=== PATIENT | female | born 1985 | race Caucasian/White ===

== ENCOUNTER 2023-07-12 16:20 | Inpatient (IN) ==
[2023-07-12] MEDS ORDERED: Nalbuphine 10 MG/ML 1 ML VIAL IV PRN (17:17)
[2023-07-12] MEDS ORDERED: Buffered Lidocaine 1% SYRIN 1 ml INTRADERM ONE (17:17)
[2023-07-12] MEDS ORDERED: Lactated Ringers 1000 ml BAG 1,000 ML IV ONE (17:17)
[2023-07-12] MEDS ORDERED: Promethazine INJ(RESTRICTED) 25 MG/ML 1 ml VIAL IV PRN (17:17)
[2023-07-12] MEDS ORDERED: Lidocaine 1% VIAL 10 MG/ML 30 ML VIAL INJ PRN (17:17)
[2023-07-12] MEDS ORDERED: Lactated Ringers 1000 ml BAG 1,000 ML IV SCH (18:00)
[2023-07-12 18:09] LABS: ABS Eosinophils 0.1 10^3/uL (0.0-0.5); ABS Lymphocytes 1.9 10^3/uL (1.0-4.8); ABS Monocytes 0.6 10^3/uL (0.0-0.9); ABS Neutrophils 5.7 10^3/uL (1.5-7.6); Eosinophil % 1.1 %; Hematocrit 35.9 % (35-45); Hemoglobin 12.5 g/dL (11.5-14.3); Lymphocyte % 23.1 %; Mean Corpuscular Hemoglobin 32.5 pg (27-33); Mean Corpuscular Hgb Conc 34.8 g/dL (31-36); Mean Corpuscular Volume 93.5 fL (80-97); Mean Platelet Volume 9.8 fL (7.5-11.2); Platelet Count 246 10^3/uL (150-450); Red Blood Count 3.84 10^6/uL (3.63-4.92); Red Cell Distribution Width 13.6 % (12-17); White Blood Count 8.2 10^3/uL (3.8-11.8)
[2023-07-12 18:25] LABS: Urine Appearance Cloudy; Urine Bilirubin Negative (Negative); Urine Blood Negative (Negative); Urine Color Yellow; Urine Glucose 1+(50 mg/dL) (Negative); Urine Ketones Negative (Negative); Urine Nitrite Negative (Negative); Urine Protein Negative (Negative); Urine Specific Gravity 1.009 (1.002-1.030); Urine Urobilinogen Negative (Negative)
[2023-07-12] MEDS: Ampicillin ADVAN 2 GM in NS 0.9% 100 ml BAG 100 ML IVPB SCH (18:40)
[2023-07-12 18:47] LABS: Urine Benzodiazepine Screen None Detected (None Detect); Urine Cannabinoids Screen None Detected (None Detect); Urine Opiates Screen None Detected (None Detect)
[2023-07-13] MEDS: Ampicillin ADVAN 2 GM in NS 0.9% 100 ml BAG 100 ML IVPB SCH ×4 (01:00→17:24)
[2023-07-13] MEDS ORDERED: Oxytocin in LR 20,000 MILLI.UNIT/1,000 ML BAG IV SCH ×2 (05:50→13:20)
[2023-07-13] MEDS ORDERED: OBEPIDURAL (200 ML) 200 ML EPIDURAL ONE (09:39)
[2023-07-13] MEDS ORDERED: Lidocaine 1.5% EPI 1:200,000 30 ML SDV ONE (09:39)
[2023-07-13] MEDS ORDERED: Lactated Ringers 1000 ml BAG 1,000 ML IV ONE (10:18)
[2023-07-13] MEDS ORDERED: Lactated Ringers 1000 ml BAG 500 ML IV PRN ×2 (10:18)
[2023-07-13] MEDS ORDERED: Sodium Citrate/Citric Acid LIQ 15 ML UDC PO PRN (10:18)
[2023-07-13] MEDS ORDERED: Phenylephrine 40 mcg/mL 10mL (400mcg) SYRINGE IV PUSH PRN ×2 (10:18)
[2023-07-13] MEDS ORDERED: Lactated Ringers 1000 ml BAG 1,000 ML IV SCH ×3 (11:00→14:00)
[2023-07-13] MEDS ORDERED: OBEPIDURAL (200 ML) 200 ML EPIDURAL SCH (11:00)
[2023-07-13 12:55] LABS: Urine Appearance Clear; Urine Bilirubin Negative (Negative); Urine Blood Negative (Negative); Urine Color Straw; Urine Glucose Negative (Negative); Urine Ketones Negative (Negative); Urine Nitrite Negative (Negative); Urine Protein Negative (Negative); Urine Specific Gravity 1.006 (1.002-1.030); Urine Urobilinogen Negative (Negative)
[2023-07-13] MEDS ORDERED: Glycerin ADULT 2.4 gm SUPP PR PRN (13:17)
[2023-07-13] MEDS ORDERED: Witch Hazel PAD JAR TOPICAL PRN (13:17)
[2023-07-13] MEDS ORDERED: Dibucaine 1% OINT 28.35 GM TUBE PR PRN (13:17)
[2023-07-14 06:35] LABS: ABS Eosinophils 0.2 10^3/uL (0.0-0.5); ABS Lymphocytes 2.7 10^3/uL (1.0-4.8); ABS Monocytes 0.7 10^3/uL (0.0-0.9); ABS Neutrophils 6.5 10^3/uL (1.5-7.6); Eosinophil % 1.6 %; Hematocrit 29.6 % (35-45); Hemoglobin 10.4 g/dL (11.5-14.3); Mean Corpuscular Hemoglobin 32.9 pg (27-33); Mean Corpuscular Hgb Conc 35.1 g/dL (31-36); Mean Corpuscular Volume 93.9 fL (80-97); Mean Platelet Volume 9.5 fL (7.5-11.2); Platelet Count 203 10^3/uL (150-450); Red Blood Count 3.15 10^6/uL (3.63-4.92); Red Cell Distribution Width 13.7 % (12-17); White Blood Count 10.1 10^3/uL (3.8-11.8)
[2023-07-15 08:26] VITALS: BP 121/74
== END 2023-07-15 15:15 | disposition home or self-care (01) | DRG 560 ==
LOC: MCHOBOUT 16:20 → MCHOB 17:53
PROVIDERS: ADMIT Obstetrics & Gynecology; ATTEND Obstetrics & Gynecology